=== PATIENT | male | born 1970 | race Caucasian/White ===

== ENCOUNTER 2018-07-19 18:37 | Inpatient (IN) | payer MEDICARE ==
[~2018-07-19] VITALS: Ht 180.3 cm; Wt 97.5 kg
--- NOTE | ~2018-07-19 | MORECARE ---
CASE MANAGEMENT DISCHARGE SUMMARY PATIENT: CANDICE VASQUES JR UNIT: [id number] ADM DATE: 07/19/18 AGE: 48 : 70 SEX: M ROOM/BED: D.2229 AUTHOR: MARKEL NEGRETE PHYSICIAN: REFERRING PHYSICIAN: MARIYA SHAW MD DATE OF SERVICE: 07/20/18 Discharge Plan Patient Name: CANDICE VASQUES Facility: [facility]:[place] : 1970 Planned Disposition: Home Anticipated Discharge Date: Discharge Date: Expected LOS: Initial Reviewer: [email or web address] Initial Review Date: 07/20/2018 Generated: 07/20/18 3:44 pm Patient Name: CANDICE VASQUES Page [id number] at 1444 All edits/amendments must be made on the electronic document DICTATION DATE: 07/20/181442 [employer]UCK RENTAL SERVICE ATTENDANT: KALIA 07/20/18 1443 RPT#: [id number] DC DATE: STATUS: ADM IN [facility] [address] [place] [address] END OF REPORT
--- NOTE | ~2018-07-19 | MORECARE ---
CASE MANAGEMENT DISCHARGE SUMMARY PATIENT: CANDICE VASQUES JR UNIT: [id number] ADM DATE: 07/19/18 AGE: 48 : 70 SEX: M ROOM/BED: D.2229 AUTHOR: PENELOPEDOC PHYSICIAN: REFERRING PHYSICIAN: MARIYA SHAW MD DATE OF SERVICE: 07/20/18 Discharge Plan Patient Name: CANDICE VASQUES Facility: [facility]:[place] : 1970 Planned Disposition: Home Anticipated Discharge Date: Discharge Date: Expected LOS: Initial Reviewer: [email or web address] Initial Review Date: 07/20/2018 Generated: 07/20/18 3:53 pm Comments DCP- Discharge Planning Updated by [email or web address]: Cira Owens on 07/20/18 1:[address] Patient Name: CANDICE VASQUES Admission Status: ER Accout number: [id number] Admission Date: 07-19-2018 : 1970 Admission Diagnosis: Attending: MARIYA SHAW Current LOS: 1 Anticipated DC Date: Planned Disposition: Home Primary Insurance: MEDICARE A & B Discharge Planning Comments: CM met with patient and his to discuss discharge planning. He is independent with all ADL's and IADL's. States he does not have any DME or need any DME. His will take him home on discharge. Denies discharge needs. No needs identified. CM will continue to follow and assist with discharge planning/needs. Car Varnisher: Cira Owens DCPIA - Discharge Planning Initial Assessment Updated by [email or web address]: Cira Owens on 07/20/18 2:44 pm * Is the patient Alert and Oriented? Yes * How many steps to enter\exit or inside your home? 0/0 * PCP No PCP * [facility] [place] * Preadmission Environment Home with Family * ADLs Independent * Equipment None * List name and contact numbers for known caregivers / representatives who currently or will assist patient after discharge: Zenia marin - [phone] * Verbal permission to speak to the caregivers and representatives has been obtained from the patient. Yes * Community resources currently utilized None * Additional services required to return to the preadmission environment? No * Can the patient safely return to the preadmission environment? Yes * Has this patient been hospitalized within the prior 30 days at any hospital? No Last DP export: 07/20/18 1:44 p Patient Name: CANDICE VASQUES Page [id number] at 1453 All edits/amendments must be made on the electronic document DICTATION DATE: 07/20/181451 THORACIC SURGEON: KALIA 07/20/181451 RPT#: [id number] DC DATE: STATUS: ADM IN [facility] [address] [place] [address] END OF REPORT
[2018-07-19 19:20] LABS: APPEARANCE CLEAR (CLEAR); COLOR YELLOW (YELLOW); GLUCOSE NEGATIVE (NEGATIVE); KETONE NEGATIVE (NEGATIVE); NITRITE NEGATIVE (NEGATIVE); PROTEIN NEGATIVE (NEGATIVE)
[2018-07-19 19:21] LABS: BILIRUBIN NEGATIVE (NEGATIVE); UROBILINOGEN NORMAL (NORMAL)
[2018-07-19 19:31] LABS: BASOPHILS 0.1 % (0-2); EOSINOPHILS 2.8 % (0-7); HEMATOCRIT 41.2 % (42.0-54.0); HEMOGLOBIN 14.2 g/dL (13.5-17.5); IMMATURE GRANULOCYTES 0.3 % (0-5); LYMPHOCYTES 16.7 % (15-50); MCH 30.2 pg (26.0-34.0); MCHC 34.5 g/dL (31.0-37.0); MCV 87.7 fL (80.0-100.0); MEAN PLATELET VOLUME 9.5 fL (7.4-10.4); MONOCYTES 15.1 % (2-11); PLATELET COUNT 330 10x3/uL (130-400); RDW 12.8 % (11.5-14.5); WBC 9.5 10x3/uL (4.8-10.8)
[2018-07-19 19:52] LABS: ALKALINE PHOSPHATASE 131 U/L (46-116); ALT (SGPT) 29 U/L (10-68); AMYLASE - SERUM 58 U/L (25-115); CALC OSMOLALITY 276 mosm/kg (275-300); CALCIUM 8.7 mg/dL (8.5-10.1); CARBON DIOXIDE 27.2 mmol/L (21.0-32.0); CHLORIDE - SERUM 102 mmol/L (98-107); CREATININE - SERUM 0.8 mg/dL (0.6-1.3); GLUCOSE 120 mg/dL (74-106); LIPASE 455 U/L (73-393); POTASSIUM - SERUM 4.2 mmol/L (3.5-5.1); PROTEIN - SERUM 7.5 g/dL (6.4-8.2); SODIUM 138 mmol/L (136-145); UREA NITROGEN 13 mg/dL (7-18); eGFR NON AFRICAN AMERICAN > 90 mL/min (90-120)
[2018-07-19 20:30] VITALS: BP 133/91
[2018-07-19 21:30] VITALS: BP 146/101
[2018-07-20] VITALS (7 sets, daily range): BP systolic 138–149; BP diastolic 83–98; Ht 180.3 cm; Wt 97.5 kg
[2018-07-20 04:47] LABS: BASOPHILS 0.2 % (0-2); EOSINOPHILS 3.3 % (0-7); HEMATOCRIT 40.2 % (42.0-54.0); HEMOGLOBIN 13.7 g/dL (13.5-17.5); IMMATURE GRANULOCYTES 0.2 % (0-5); LYMPHOCYTES 19.4 % (15-50); MCH 29.9 pg (26.0-34.0); MCHC 34.1 g/dL (31.0-37.0); MCV 87.8 fL (80.0-100.0); MEAN PLATELET VOLUME 9.4 fL (7.4-10.4); NEUTROPHILS 64.9 % (40-80); PLATELET COUNT 314 10x3/uL (130-400); RBC 4.58 10x6/uL (4.20-6.10); RDW 12.7 % (11.5-14.5); WBC 8.4 10x3/uL (4.8-10.8)
[2018-07-20 05:12] LABS: ALBUMIN 2.9 g/dL (3.4-5.0); ALKALINE PHOSPHATASE 127 U/L (46-116); ALT (SGPT) 28 U/L (10-68); BILIRUBIN - TOTAL 0.18 mg/dL (0.2-1.3); CALC OSMOLALITY 271 mosm/kg (275-300); CALCIUM 8.4 mg/dL (8.5-10.1); CARBON DIOXIDE 28.7 mmol/L (21.0-32.0); CHLORIDE - SERUM 102 mmol/L (98-107); CHOLESTEROL, TOTAL 135 mg/dL (0-200); CREATININE - SERUM 0.8 mg/dL (0.6-1.3); GLUCOSE 96 mg/dL (74-106); HDL CHOLESTEROL 27 mg/dL (32-96); LDL CHOLESTEROL 88 mg/dL (0-100); LDL-HDL RATIO 3.3 ratio (1.5-3.5); LIPASE 373 U/L (73-393); PHOSPHOROUS 3.7 mg/dL (2.5-4.9); PROTEIN - SERUM 7.3 g/dL (6.4-8.2); SODIUM 136 mmol/L (136-145); TRIGLYCERIDE 104 mg/dL (30-200); UREA NITROGEN 13 mg/dL (7-18); eGFR NON AFRICAN AMERICAN > 90 mL/min (90-120)
[2018-07-20 13:14] LABS: UDS - AMPHET POSITIVE QUAL (NEGATIVE); UDS - BARB NEGATIVE QUAL (NEGATIVE); UDS - BENZO NEGATIVE QUAL (NEGATIVE); UDS - COCAINE NEGATIVE QUAL (NEGATIVE); UDS - OPIATE POSITIVE QUAL (NEGATIVE); UDS - PCP NEGATIVE QUAL (NEGATIVE); UDS - THC NEGATIVE QUAL (NEGATIVE)
[2018-07-21 00:27] VITALS: BP 137/94
[2018-07-21 04:50] VITALS: BP 152/99
[2018-07-21 05:21] LABS: ALBUMIN 2.8 g/dL (3.4-5.0); ALKALINE PHOSPHATASE 130 U/L (46-116); ALT (SGPT) 24 U/L (10-68); BILIRUBIN - TOTAL 0.17 mg/dL (0.2-1.3); CALCIUM 8.3 mg/dL (8.5-10.1); CARBON DIOXIDE 30.4 mmol/L (21.0-32.0); CHLORIDE - SERUM 101 mmol/L (98-107); CHOL - HDL RATIO 5.6 ratio (2.3-4.9); CHOLESTEROL, TOTAL 141 mg/dL (0-200); CREATININE - SERUM 0.9 mg/dL (0.6-1.3); GLUCOSE 86 mg/dL (74-106); HDL CHOLESTEROL 25 mg/dL (32-96); LDL CHOLESTEROL 87 mg/dL (0-100); LDL-HDL RATIO 3.5 ratio (1.5-3.5); LIPASE 137 U/L (73-393); PROTEIN - SERUM 7.2 g/dL (6.4-8.2); SODIUM 138 mmol/L (136-145); TRIGLYCERIDE 147 mg/dL (30-200); eGFR NON AFRICAN AMERICAN > 90 mL/min (90-120)
[2018-07-21 05:22] LABS: CALC OSMOLALITY 273 mosm/kg (275-300); UREA NITROGEN 9 mg/dL (7-18)
[2018-07-21 09:30] VITALS: BP 127/63
[2018-07-21 12:30] VITALS: BP 139/90
[2018-07-21] MEDS ORDERED: MIRALAX17 GM PO (13:15)
== END 2018-07-21 17:18 | disposition home or self-care (01) | DRG 439 ==
LOC: D.ER 18:37 → D.MS 22:28
PROVIDERS: Emergency Medicine; Family Medicine; Internal Medicine Nephrology
DX: K85.90 Acute pancreatitis without necrosis or infection, unspecified (principal); F17.223 Nicotine dependence, chewing tobacco, with withdrawal; F15.10 Other stimulant abuse, uncomplicated; I10 Essential (primary) hypertension; K57.30 Diverticulosis of large intestine without perforation or abscess without bleeding